=== PATIENT | male | born 1995 | race African-American/Black ===

== ENCOUNTER 2017-11-08 15:17 | Emergency (ER) | payer MEDICAID ==
[~2017-11-08] VITALS: Ht 172.7 cm; Wt 76.0 kg
[~2017-11-08 15:17] MED LIST: ALPR0.5T; TRAM50TA3
[2017-11-08] MEDS ORDERED: SODIUM CHLORIDE 0.9% 1,000 ML IV ONE (16:11)
[2017-11-08] MEDS ORDERED: LORAZEPAM 2MG/ML CPJ IV ONE (16:15)
[2017-11-08 17:07] LABS: BASOPHILS % 1.2 % (0.0-2.0); EOSINOPHILS % 0.5 % (0.0-5.0); HEMATOCRIT. 33.7 % (42.0-52.0); HEMOGLOBIN. 11.3 g/dL (14.0-18.0); LYMPHOCYTES % 19.4 % (20.0-50.0); MEAN CORPUSCULAR VOLUME 101.3 fL (80.0-94.0); MEAN PLATELET VOLUME 7.1 fl (7.4-10.4); MONOCYTES % 5.5 % (2.0-8.0); NEUTROPHILS % 73.4 % (40.0-76.0); PLATELET 217 x1000/uL (130-400); RED BLOOD CELL COUNT 3.32 mill/uL (4.7-6.1); RED CELL DISTRIBUTION WIDTH 14.3 % (11.6-14.6)
[2017-11-08 17:11] LABS: CHLORIDE 109 mEq/L (98-107)
[2017-11-08 17:12] LABS: PROTHROMBIN TIME 10.1 sec (9.4-11.6)
[2017-11-08 17:30] LABS: ETHANOL BLOOD 326 mg/dL
[2017-11-08 22:34] VITALS: BP 118/72
== END 2017-11-08 22:40 | disposition home or self-care (01) ==
LOC: ER 15:29
DX: T51.91XA Toxic effect of unspecified alcohol, accidental (unintentional), initial encounter (principal); R00.2 Palpitations; Y92.89 Other specified places as the place of occurrence of the external cause
CPT/HCPCS: 36415; 80053; 85025; 85610; 93005; 99285; G0482; J2060; J7030; Z7610

== ENCOUNTER 2025-03-03 20:51 | Emergency (ER) | payer MEDICAID ==
[~2025-03-03] VITALS: Ht 167.6 cm; Wt 68.0 kg
[2025-03-03 20:54] VITALS: BP 127/92; PULSE 61; RESP 14; TEMP 37; O2SAT 98
== END 2025-03-03 22:34 | disposition home or self-care (01) ==
LOC: ER 20:51
DX: F10.229 Alcohol dependence with intoxication, unspecified (principal); Z79.899 Other long term (current) drug therapy; Y90.9 Presence of alcohol in blood, level not specified
CPT/HCPCS: 99283